=== PATIENT | female | born 1995 | race African-American/Black ===

== ENCOUNTER 2023-12-21 05:58 | Emergency (ER) | payer OTHER, SELFPAY ==
[2023-12-21 06:03] VITALS: BP 123/82; PULSE 62; RESP 16; TEMP 36.8; O2SAT 100; BMI 26.5
--- NOTE | 2023-12-21 07:05 | ED_ITS ---
History of Present Illness General Chief Complaint: Epistaxis Stated Complaint: nosebleed Time Seen by Provider: 12/21/23 06:38 Source: patient Mode of arrival: ambulatory Limitations: no limitations History of Present Illness HPI Narrative: 28 year old female presents with nosebleeds intermittently past 2 days. Patient reports she has had 4 nosebleeds in the past 2 days each lasting 20-30 minutes. Patient does however report she got back around midnight from [place] yesterday and she may be sensitive to temperature changes. No known bleeding disorders. Denies headache, vision changes, dizziness, weakness, nausea, vomiting, abdominal pain, chest pain, shortness of breath, fevers and chills Related Data Allergies Allergy/AdvReac Type Severity Reaction Status Date / Time Seasonal Allergies Allergy Itchy Eyes Verified 12/21/23 06:02 Review of Systems 2 Review of Systems: Yes all other systems are reviewed and are negative PMFSH Past Medical History Attestation statement: The following information was validated with the patient. Source: old records reviewed and nursing notes reviewed Social History Social History Smoked in Last 30 Days: Yes Use of substances other than those prescribed or required for medical reasons: Yes Substance Use Type: Marijuana Advance Directives: No Advance Directives Information Provided: No Physical Exam 2 Vital Signs: Vital Signs: Last Vital Signs Temp 98.3 F 12/21/23 06:03 Pulse 58 12/21/23 07:20 Resp 16 12/21/23 07:20 BP 114/78 12/21/23 07:20 Pulse Ox 100 12/21/23 07:20 O2 Del Method Room Air 12/21/23 07:20 BMI result Body Mass Index 26.5 Vital signs stable Appearance: Alert.? Oriented X3.? No acute distress.? Head: Normocephalic, atraumatic, no step-offs or deformities Eyes: Pupils equal, round and reactive to light.? ENT: Pharynx normal.? Bilateral nares with prominent nasal turbinates. No active bleeding. Neck: Normal inspection.? Neck supple.? CVS: Normal heart rate and rhythm.? Pulses normal.? Respiratory: No respiratory distress.? Breath sounds normal.? Abdomen: Soft and nontender.? Skin: Skin warm and dry.? Normal skin color.? Normal skin turgor.? Extremities: No lower extremity edema.? No calf ttp. 5/5 strength to bilateral upper and lower extremities Neuro: Oriented X 3.? No motor deficit.? No sensory deficit. CN 2-12 intact Course Reevaluation(s) Reevaluation #1: CBC unremarkable. Chemistry no acute findings. Coags normal. Patient not having a nosebleed. Was sent home with Afrin and hand. Educated patient on diagnosis and treatment plan, answered all question, patient verbalizes understanding. At this time patient will be discharged home, advised to return with new or worsening symptoms. Educated on worrisome signs and symptoms and when to return. At this time I feel comfortable discharge home. Time: 07:55 Medications Administered Discontinued Medications Generic Name Dose Route Start Last Admin Trade Name Freonesimo PRN Reason Stop Dose Admin Oxymetazoline HCl 2 spray 12/21/23 07:11 12/21/23 07:19 Oxymetazoline Hcl 0.05 % Nasal 15 Ml [place] NOSTRIL-B 12/21/23 07:12 2 spray ONCE ONE Administration Medical Decision Making Medical Decision Making [facility] Narrative: 28-year-old female presents with intermittent nosebleeds over the past 2 days. Does report recent travel. Physical exam significant for Bilateral nares with prominent nasal turbinates. No active bleeding. This was likely mechanical epistaxis or posterior nosebleed. Unlikely acute blood loss anemia. No signs of bleeding at this time. Plan basic labs. Differential Diagnosis Differential Diagnoses: The differential diagnosis associated with the presentation includes This was likely mechanical epistaxis or posterior nosebleed. Unlikely acute blood loss anemia. No signs of bleeding at this time. Admission/Observation Consideration of admission/observation: Escalation of care including admission/observation considered Unlikely Lab Data [facility] Lab Attestation statement: I reviewed the patient's lab results. 12/21/23 07:18 12/21/23 07:18 Labs: Lab Results 12/21/23 Range/Units 07:18 WBC 7.4 (4.8-10.8) X10*3/uL RBC 4.40 (4.20-5.50) X10*6/uL Hgb 12.3 (12.0-16.0) g/dl Hct 37.0 (37.0-47.0) % MCV 84.1 (80.0-98.0) fL MCH 28.0 (27.0-33.0) pg MCHC 33.2 (31.0-35.0) g/dl RDW 13.0 (11.0-16.0) % Plt Count 193 (160-400) X10*3/uL MPV 11.4 (9.4-12.3) fL Immature Gran % (Auto) 0.3 (0.0-0.4) % Neut % (Auto) 45.2 (45-73) % Lymph % (Auto) 45.0 H (20-40) % [place] % (Auto) 6.5 (2-11) % Eos % (Auto) 2.2 (0-4) % Baso % (Auto) 0.8 (0-2) % Lymph # (Auto) 3.3 (1.2-4.9) X10*3/uL [place] # (Auto) 0.5 (0.1-1.2) X10*3/uL Eos # (Auto) 0.2 (0.0-0.4) X10*3/uL Baso # (Auto) 0.1 (0.0-0.2) X10*3/uL Abs Immat Gran (auto) 0.02 (0.00-0.03) X10*3/uL Absolute Neuts (auto) 3.4 (2.0-8.3) x10*3/uL Absolute Nucleated RBC 0.000 (0.0-0.012) X10*3/uL Nucleated RBC % (auto) 0.0 (0.0-0.2) /100WBC PT 11.8 (11.1-13.3) SEC INR 1.0 (0.9-1.1) Sodium 138 (135-145) mmol/L Potassium 3.4 (3.3-5.1) mmol/L Chloride 107 (96-108) mmol/L Carbon Dioxide 23 (22-29) mmol/L Anion Gap 11 L (12-20) BUN 7 L (9-16) mg/dL Creatinine 0.78 (0.5-1.4) mg/dL Estim Creat Clear Calc 101.3 Estimated GFR > 60 Random Glucose 99 (60-115) mg/dL Calcium 9.0 (8.4-10.2) mg/dL Total Bilirubin 0.5 (0.0-1.0) mg/dL AST 16 (5-31) U/L ALT 13 (0-31) U/L Alkaline Phosphatase 40 (39-117) U/L Total Protein 6.9 (6.5-8.0) g/dL Albumin 4.1 (3.5-5.0) g/dL Discharge Plan Discharge Clinical Impression: Epistaxis Patient Disposition: Home, Self-Care Instructions: Nosebleed (ED) Additional Instructions: Take your medications as prescribed. If you were prescribed antibiotics today, it is important that you take your medication to their entirety, do not skip any doses, do not finish them early. Follow-up with your primary care provider this week. Return to the emergency department with new or worsening symptoms. Such as fevers, chills, chest pain, shortness of breath, nausea, vomiting, dizziness, headache, vision changes, lethargy In case of emergency call 911 Referrals: Physician,Flavio J [Primary Care Provider] - 2 days Stand Alone Forms: Work/School Release Interventions: ED Discharge Assessment Last Done: 12/21/23 07:49 Discharge Date/Time: 12/21/23 07:49
[2023-12-21] MEDS: Oxymetazoline HCl 0.05 % Nasal 15 ML SPRAY 2 SPRAY NOSTRIL-B (07:19)
[2023-12-21 07:20] VITALS: BP 114/78; PULSE 58; RESP 16; O2SAT 100
[2023-12-21 07:22] LABS: MANUAL DIFF FLAG NO
[2023-12-21 07:23] LABS: Basophils Absolute Auto 0.1 X10*3/uL (0.0-0.2); Basophils Percent Auto 0.8 % (0-2); Eosinophils Absolute Auto 0.2 X10*3/uL (0.0-0.4); Eosinophils Percent Auto 2.2 % (0-4); Hemoglobin 12.3 g/dl (12.0-16.0); Imm Gran Abs Auto 0.02 X10*3/uL (0.00-0.03); Imm Gran Pct Auto 0.3 % (0.0-0.4); Lymphocytes Absolute Auto 3.3 X10*3/uL (1.2-4.9); Mean Corpuscular HGB Conc 33.2 g/dl (31.0-35.0); Mean Corpuscular Volume 84.1 fL (80.0-98.0); Mean Platelet Volume 11.4 fL (9.4-12.3); Monocytes Absolute Auto 0.5 X10*3/uL (0.1-1.2); Monocytes Percent Auto 6.5 % (2-11); Neutrophils Absolute Auto 3.4 x10*3/uL (2.0-8.3); Neutrophils Percent Auto 45.2 % (45-73); Platelet Count 193 X10*3/uL (160-400); White Blood Count 7.4 X10*3/uL (4.8-10.8)
[2023-12-21 07:37] LABS: Alanine Aminotransferase 13 U/L (0-31); Albumin Level 4.1 g/dL (3.5-5.0); Alkaline Phosphatase 40 U/L (39-117); Anion Gap 11 (12-20); Aspartate Amino Transferase 16 U/L (5-31); Bilirubin Total 0.5 mg/dL (0.0-1.0); Blood Urea Nitrogen 7 mg/dL (9-16); Carbon Dioxide 23 mmol/L (22-29); Chloride 107 mmol/L (96-108); Creatinine Clr Calc Pharmacy 101.3; Estimated Glomerular Filt Rate > 60; Glucose Random 99 mg/dL (60-115); Potassium 3.4 mmol/L (3.3-5.1); Sodium 138 mmol/L (135-145); Total Protein 6.9 g/dL (6.5-8.0)
[2023-12-21 07:39] LABS: Prothrombin Time 11.8 SEC (11.1-13.3)
== END 2023-12-21 07:49 | disposition home or self-care (01) ==
PROVIDERS: Physician Assistant; Emergency Provider Emergency Medicine
DX: R04.0 Epistaxis (principal); Z79.899 Other long term (current) drug therapy
CPT/HCPCS: 36415; 80053; 85025; 85610; 99283; 99284

== ENCOUNTER 2024-08-20 21:36 | Emergency (ER) | payer OTHER, SELFPAY ==
--- NOTE | ~2024-08-20 | XR_ITS ---
EXAMINATION: XR ANKLE, LEFT CLINICAL INFORMATION: Pain COMPARISON: None available. TECHNIQUE: AP, lateral, and mortise views of the left ankle. FINDINGS: No fracture. Alignment is anatomic. No erosions. Joint spaces are maintained. Soft tissues are normal. XR/XR ankle LT min 3V IMPRESSION: Normal left ankle. Electronically signed by: Fernando Saleem MD 08/20/2024 11:22 PM EDT
--- NOTE | 2024-08-20 21:49 | ED_ITS ---
HPI - Extremity Injury (Lower) General Chief Complaint: Extremity Injury, Lower Stated Complaint: hurt left ankle playing roller derby Time Seen by Provider: 08/20/24 21:47 Source: patient Mode of arrival: ambulatory Limitations: no limitations History of Present Illness ED Provider: JESSICA SMITH Narrative: 29 yo female no sig PMH here with L ankle inversion injury while playing roller [employer]. [place] a pop hurts lateral ankle. No other trauma reported. Hurts to bear weight. No prior injury to L ankle MD complaint: ankle injury Onset (ago): minute(s) ([employer]) Injury: Left: ankle Type of Injury: inversion Place: other Severity: moderate Relieving factors: immobilization Exacerbating factors: weight bearing and palpation Context: fall Associated symptoms: snap/pop sensation Other symptoms: none Treatments prior to arrival: bandage Related Data Allergies Allergy/AdvReac Type Severity Reaction Status Date / Time Seasonal Allergies Allergy Itchy Eyes Verified 08/20/24 21:55 Review of Systems 2 Review of Systems: Constitutional : No Fever, No Chills Cardiovascular : No Chest Pain, No SOB Respiratory : No Cough, No Dyspnea Gastrointestinal : No Nausea, No Vomiting, No Diarrhea, No abdominal Pain Musculoskeletal : positive joint pain, No Myalgias, pos Joint Swelling Skin : No Skin lacerations, No rash Neuro : No Weakness, No Numbness, No Loss of Consciousness, No Dizziness, No Headache Psych : No Anxiety/Panic, No Depression All other systems reviewed and are negative [facility], [facility] Past Medical History Attestation statement: The following information was validated with the patient. Source: old records reviewed Medical History Achilles tendon rupture Social History Social History (Updated 08/20/24 @ 22:04 by Yuliya Simon DO) Patient Tobacco Use Status: Never used Tobacco Smoked in Last 30 Days: Yes Substance Use Type: Marijuana Advance Directives: No Advance Directives Information Provided: No Do you have a plan to hurt others: No Plan Patient : No Physical Exam Vital Signs: Vital Signs: Last Vital Signs Temp 97.9 F 08/20/24 22:12 Pulse 72 08/20/24 22:12 Resp 16 08/20/24 22:12 BP 133/87 08/20/24 22:12 Pulse Ox 99 08/20/24 22:12 O2 Del Method Room Air 08/20/24 22:12 BMI result Body Mass Index 24.9 Appearance: Alert. Oriented X3. No acute distress. Eyes: Pupils equal, round and reactive to light. ENT: Pharynx normal. Neck: Normal inspection. Neck supple. CVS: Normal heart rate and rhythm. Pulses normal. Respiratory: No respiratory distress. Breath sounds normal. Abdomen: Soft and nontender. Skin: Skin warm and dry. Normal skin color. Normal skin turgor. Extremities: No lower extremity edema. ttp along anterior lateral malleolus, no other ttp no prox fibu ttp no posterior ttp no foot ttp, 2+ DP and SILT intact Neuro: Oriented X 3. No motor deficit. No sensory deficit. Medical Decision Making Medical Decision Making MDM Narrative: 29 yo female here with L ankle inversion injury localized to left lateral malleolus at this time will need xray, crutches, fredy wrap she is [place] intact Differential Diagnosis Differential Diagnoses: The differential diagnosis associated with the presentation includes sprain, strain, fracture Independent Interpretation I performed an independent interpretation of an: Plain X-Ray (no fracture) Radiology Impression Discussion of test interpretation with radiology: I have reviewed the radiologist's reading. Procedures Orthopedic Splinting/Casting Injury #1: Side: left Lower Extremity Immobilizer: AirCast and Fredy wrap Other Orthopedic Equipment: crutches Discharge Plan Discharge Clinical Impression: Ankle sprain and strain Patient Disposition: Home, Self-Care Instructions: Ankle Sprain (ED) Additional Instructions: initial xray read no acute fracture noted on prelim read if final read changes we will call you with any changes wear air splint and fredy wrap for 7 days use crutches for 5 then can start bearing weight if you feel comfortable motrin and tylenol for pain rest ice compression and elevation Referrals: [facility] [Provider Group] (if not better in 1 week) Stand Alone Forms: Work/School Release Interventions: ED Discharge Assessment Last Done: 08/20/24 22:12 Discharge Date/Time: 08/20/24 22:16 Print Language: Luxembourgish
[2024-08-20 21:53] VITALS: BP 133/87; PULSE 95; RESP 16; TEMP 36.6; O2SAT 99; BMI 24.9
[2024-08-20 22:12] VITALS: BP 133/87; PULSE 72; RESP 16; TEMP 36.6; O2SAT 99
== END 2024-08-20 22:16 | disposition home or self-care (01) ==
PROVIDERS: Emergency Provider Emergency Medicine
DX: S93.402A Sprain of unspecified ligament of left ankle, initial encounter (principal); M25.572 Pain in left ankle and joints of left foot; X50.1XXA Overexertion from prolonged static or awkward postures, initial encounter; Y93.89 Activity, other specified; Y92.89 Other specified places as the place of occurrence of the external cause; Y99.8 Other external cause status
CPT/HCPCS: 29515; 73610; 99284